=== PATIENT | male | born 1945 | race Caucasian/White ===

== ENCOUNTER 2022-04-13 21:45 | Emergency (ER) | payer MEDICARE, OTHER ==
[~2022-04-13] VITALS: Ht 175.3 cm; Wt 95.0 kg
[~2022-04-13 21:45] MED LIST: ALEVE 220MG220 MG PO; BENADRYL25 M2; COREG 3.123.125 MG/T PO; COUMADIN4 MG PO; CRANBERRY1 CAP PO; CRESTOR 10MG10 MG PO; HCTZ12.5TAB PO; MELATONIN5 MG PO; MULTIPLE VITAMI1 CAP PO; PRINIVIL10 MG PO; TIAZAC240 MG PO; TYLENOL 325MG325 MG PO
[2022-04-13 21:56] VITALS: TEMP 97.1
[2022-04-13 23:00] LABS: HEMATOCRIT 33.7 % (42.0-52.0); HEMOGLOBIN 10.6 g/dl (13.5-18.0); MEAN CELL VOLUME 97 fl (80.0-100.0); MEAN CORPUSCULAR HEMOGLOBIN 31 pg (27-31); MEAN CORPUSCULAR HGB CONC 32 g/dl (33.0-37.0); MEAN PLATELET VOLUME 9.9 fl (7.4-10.4); PLATELET COUNT 182 K/mm3 (130-400); RED BLOOD COUNT 3.46 M/mm3 (4.20-5.60); REDCELL DISTRIBUTION WIDTH-CV 13.7 % (11.5-14.5)
[2022-04-13 23:02] LABS: INR 2.2 (0.8-3.0); PROTHROMBIN TIME 25.2 SECONDS (9.7-12.8)
[2022-04-13 23:12] LABS: CALCIUM 9.2 mg/dL (8.4-10.2); CREATININE, serum 0.73 mg/dL (0.72-1.25); POTASSIUM 3.8 mmol/L (3.5-4.5)
[2022-04-14] MEDS ORDERED: NORCO 325 MG-51 TAB PO (00:55)
[2022-04-14] MEDS ORDERED: CEPHALEXIN500 M1 PO (00:55)
[2022-04-14 01:20] VITALS: BP 156/73; PULSE 60
== END 2022-04-14 01:20 | disposition home or self-care (01) ==
LOC: COL.ER 21:45
PROVIDERS: Emergency Medicine
DX: R04.0 Epistaxis (principal); Z79.01 Long term (current) use of anticoagulants; W19.XXXA Unspecified fall, initial encounter; Y92.22 Religious institution as the place of occurrence of the external cause